=== PATIENT | male | born 1980 | race Caucasian/White ===

== ENCOUNTER 2016-12-21 16:00 | Emergency (ER) | payer OTHER ==
[~2016-12-21] VITALS: Wt 100.0 kg
[~2016-12-21 16:00] MED LIST: ACET325T33 PO; IBUP-1542 PO; NAPR-260 PO
[2016-12-21] MEDS ORDERED: ALBUTEROL 0.5% (NEB) 2.5 MG/0.5 ML AMP HHN STA (16:49)
[2016-12-21] MEDS ORDERED: IPRATROPIUM (NEB) 0.5 MG/2.5 ML AMP HHN ONE (17:00)
--- NOTE | 2016-12-21 17:19 | RADRPT ---
PROCEDURE: Chest Radiograph. CLINICAL INDICATION: Cough TECHNIQUE: Single frontal chest radiograph. COMPARISON: Chest radiograph 07/29/2013 FINDINGS: The cardiomediastinal silhouette is within normal limits. There is increased density throughout the left hemithorax which appears to be related to centering artifact. Lung volumes are decreased in t here is basilar atelectasis. No infiltrate or effusion is seen. The bones are intact. IMPRESSION: 1. Low lung volumes with mild basilar atelectasis. 2. No evidence of acute cardiopulmonary disease. RPTAT: HJBF .Angel Valle MD, MD Date Time Electronically viewed and signed by .Angel Valle MD, on 12/21/2016 17:19 .B/
[2016-12-21] MEDS ORDERED: LISI10TA2 PO (17:48)
[2016-12-21] MEDS ORDERED: HYD25 PO (17:48)
[2016-12-21] MEDS ORDERED: OMEP20CA16 PO (17:49)
[2016-12-21] MEDS ORDERED: MELO-110 PO (17:49)
[2016-12-21] MEDS ORDERED: ALBU18HF INHALATION (18:18)
[2016-12-21] MEDS ORDERED: LEVO500T72 PO (18:18)
[2016-12-21] MEDS ORDERED: NAPR-688 PO (18:22)
[2016-12-21] MEDS ORDERED: HYDR-906 PO (18:22)
--- NOTE | 2016-12-21 18:29 | ERD ---
ER Documentation Chief Complaint Date/Time DATE: 12/21/16 TIME: 18:24 Chief Complaint FEVER AND COUGHING FOR THE PAST FEW DAYS. GEN WEAKNESS. HPI This 36-year-old male came in with his mother for coughing for the last 3 days as well as feeling left knee weakness and pain. He had prior knee surgery. He saw his orthopedist last week and a CAT scan was obtained. He told him to come in if he has any pain because this saw a broken pin on the CAT scan. He was okay at that time but now has increasing knee pain or makes it more difficult to walk although he is able to walk with his walker is normally. Is eating and drinking normally states that he has no pain currently except for his knee. ROS All systems reviewed and are negative except as per history of present illness. Medications Home Meds Active Scripts Hydrocodone/Acetaminophen ([place] 5-325 Tablet) 1 Each Tablet, 1 EACH PO Q6 Y for SEVERE PAIN LEVEL 7-10, #7 TAB Prov:CARRIEMARIFER DO 12/21/16 Naproxen* (Naproxen*) 500 Mg Tablet, 500 MG PO BID Y for PAIN, #20 TAB Prov:MARIFER BUTLER DO 12/21/16 Albuterol Sulfate* (Ventolin HFA*) 18 Gm Hfa.aer.ad, 2 PUFF INHALATION Q4H, #1 INHALER Prov:MARIFER BUTLER DO 12/21/16 Levofloxacin* (Levaquin*) 500 Mg Tablet, 500 MG PO DAILY for 7 Days, TAB Prov:MARIFER BUTLER DO 12/21/16 Reported Medications Meloxicam* (Mobic*) 15 Mg Tablet, 15 MG PO DAILY, #30 TAB 12/21/16 Omeprazole* (Omeprazole*) 20 Mg Capsule.dr, 20 MG PO DAILY, #30 CAP 12/21/16 Hydrochlorothiazide* (Hydrochlorothiazide*) 25 Mg Tab, 25 MG PO DAILY, #30 TAB 12/21/16 Lisinopril* (Lisinopril*) 10 Mg Tablet, 10 MG PO DAILY, #30 TAB 12/21/16 Discontinued Reported Medications [None] No Conflict Check 07/27/12 Discontinued Scripts Naproxen* (Naprosyn*) 500 Mg Tablet, 500 MG PO BID Y for PAIN AND/OR INFLAMMATION, #20 TAB Prov:JENNA PERALES NP 03/16/16 Acetaminophen* (Tylenol*) 325 Mg Tablet, 2 TAB PO Q8 Y for PAIN AND OR ELEVATED TEMP, #20 TAB Prov:CHINO ALBERTO DO 03/09/16 Ibuprofen* (Motrin*) 600 Mg Tab, 600 MG PO Q8, #20 TAB Prov:CHINO ALBERTO DO 03/09/16 Allergies Allergies: Coded Allergies: No Known Drug Allergies (Verified Allergy, Mild, 12/21/16) PMhx/Soc History of Surgery: Yes (RT KNEE SURGERY, TONSILLECTOMY,EAR TUBES) Anesthesia Reaction: No Hx Neurological Disorder: No Hx Respiratory Disorders: No Hx Cardiac Disorders: Yes (HTN) Hx Psychiatric Problems: No Hx Miscellaneous Medical Probl: Yes (DEVELOPMENTALLY DELAYED) Hx Alcohol Use: No Hx Substance Use: No Hx Tobacco Use: No Physical Exam Vitals Vital Signs Date Time Temp Pulse Resp B/P Pulse Ox O2 Delivery O2 Flow Rate FiO2 12/21/16 17:04 110 20 96 21 12/21/16 16:12 98.9 138 24 176/70 98 Physical Exam Const: [] No distress Head: Atraumatic Eyes: Normal Conjunctiva ENT: Normal External Ears, Nose and Mouth. Neck: Full range of motion..~ No meningismus. Resp: Clear to auscultation bilaterally except for very mild expiratory wheeze the disappeared with the next breath. Cardio: Regular rate and rhythm, no murmurs Abd: Soft, non tender, non distended. Normal bowel sounds Skin: No petechiae or rashes Back: No midline or flank tenderness Ext: No cyanosis, or edema, left knee is larger than right knee and has a surgical scar. No pain is elicited on palpation. Patient does have some pain on bending the knee. Distal pulses intact. Neur: Awake and alert and oriented 3, no focal deficits Psych: Normal Mood and Affect Results 24 hrs Current Medications Medications (Trade) Dose Ordered Sig/Margo Route PRN Reason Start Time Stop Time Status Last Admin Dose Admin Albuterol (Proventil 0.5% (Neb)) 5 mg ONCE STAT HHN 12/21/16 16:49 12/21/16 16:52 DC 12/21/16 17:03 Ipratropium [place] (Atrovent 0.02% (Neb)) 0.5 mg ONCE ONCE HHN 12/21/16 17:00 12/21/16 17:01 DC 12/21/16 17:03 Procedures/MDM Acute bronchitis and 36-year-old male. No obvious pneumonia on chest x-ray. Patient was given albuterol and Atrovent breathing treatment which he said improved his breathing. He then had no symptoms except for his pain. I did call his knee surgeon Dr. Morris . he returned the call and agreed to see the patient the office tomorrow. As a CAT scan was performed last week and the orthopedists sulaiman has the CAT scan results I see no reason for imaging at this time. Patient is ambulatory and able to leave the emergency room under his own power. I am prescribing Levaquin for the bronchitis. Also giving her Ventolin inhaler for patient comfort. Discharging with 7 [place] tabs as well as naproxen for the knee pain. He is to see his primary care doctor within the next few days and follow-up with his orthopedist tomorrow as agreed. Term precautions given. Departure Diagnosis: Primary Impression: Acute bronchitis Additional Impression: Left knee sprain Condition: Stable Patient Instructions: Bronchitis With Wheezing (Adult), Knee Pain, Uncertain Cause Additional Instructions: Call your primary care doctor TOMORROW for an appointment during the next 1-2 days.See the doctor sooner or return here if your condition worsens before your appointment time. See your orthopedist tomorrow. MARIFER BUTLER DO Dec 21, 2016 18:29
== END 2016-12-21 18:45 | disposition home or self-care (01) ==
LOC: E/R 16:00
DX: J20.9 Acute bronchitis, unspecified (principal); R40.2252 Coma scale, best verbal response, oriented, at arrival to emergency department; S83.92XA Sprain of unspecified site of left knee, initial encounter; I10 Essential (primary) hypertension; R40.2362 Coma scale, best motor response, obeys commands, at arrival to emergency department; R40.2142 Coma scale, eyes open, spontaneous, at arrival to emergency department; X58.XXXA Exposure to other specified factors, initial encounter; Y92.9 Unspecified place or not applicable
CPT/HCPCS: 71010; 94664; Z7502; Z7610

== ENCOUNTER 2017-05-18 07:59 | Emergency (ER) | payer OTHER ==
[~2017-05-18] VITALS: Ht 160 cm; Wt 90.0 kg
[~2017-05-18 07:59] MED LIST changes: -ACET325T33 PO; +ALBU18HF INHALATION; +HYD25 PO; +HYDR-906 PO; -IBUP-1542 PO; +LEVO500T72 PO; +LISI10TA2 PO; +MELO-110 PO; -NAPR-260 PO; +NAPR-688 PO; +OMEP20CA16 PO
[2017-05-18 08:01] VITALS: Ht 160 cm; Wt 90.0 kg
--- NOTE | 2017-05-18 09:20 | RADRPT ---
PROCEDURE: XR Ankle. CLINICAL INDICATION: Right ankle pain following injury TECHNIQUE: 3 views of the right ankle are available for review COMPARISON: Right ankle x-rays dated 03/09/2016 FINDINGS: The osseous structures demonstrate normal alignment and mineralization. No acute fracture or disloc ation is seen. The ankle mortise is intact. No periostitis or osteochondral lesion is identified. There is intertarsal joint space narrowing with small osteophytes along the dorsum of the talus, na vicular and second cuneiform. There is tibia talar joint space narrowing. There is mild diffuse so ft tissue edema. IMPRESSION: 1. Mild diffuse soft tissue edema. No acute fracture identified. 2. Mild ankle and midfoot arthrosis. RPTAT: HH .Dory Barth MD, Date Time Electronically viewed and signed by .Dory Barth MD, on 05/18/2017 09:20 .G/
--- NOTE | 2017-05-18 09:23 | RADRPT ---
PROCEDURE: XR Foot. CLINICAL INDICATION: Right foot pain following injury. TECHNIQUE: 3 views of the right foot are available for review. COMPARISON: Right foot x-rays dated 03/09/2016 FINDINGS: The osseous structures demonstrate normal alignment and mineralization. No acute fracture or disloc ation is seen. There is no periostitis or osteochondral lesion identified. There is mild intertarsa l joint space narrowing with osteophytes along the dorsal margin of the talus, navicular and second cuneiform. The soft tissues are unremarkable. IMPRESSION: 1. No acute fracture identified. 2. Mild midfoot arthrosis. RPTAT: HH .Dory Barth MD, MD Date Time Electronically viewed and signed by .Dory Barth MD, on 05/18/2017 09:23 .G/
[2017-05-18] MEDS ORDERED: IBUP-1542 PO (09:58)
--- NOTE | 2017-05-18 10:16 | ERD ---
ER Documentation Chief Complaint Date/Time DATE: 05/18/17 TIME: 10:08 Chief Complaint right foot pain HPI 36-year-old male patient with a past medical history of hypertension presents to the ED complaining of a crush injury to his right foot. At this time patient presented with his sister. Reports that at school, patient's classmate accidentally stepped on his right foot with his shoe. Patient is unable to describe the pain. Rates the pain a 5 out of 10. Sister reports that patient was taking naproxen and it alleviated his pain. Denies any loss of sensation, loss of range of motion, fever, weakness, numbness or tingling. Denies any lacerations or abrasions. Denies any increased redness however is slightly edematous. ROS All systems reviewed and are negative except as per history of present illness. Medications Home Meds Active Scripts Ibuprofen* (Motrin*) 600 Mg Tab, 600 MG PO Q6, #30 TAB Prov:MARYANN VILLAR PA-C 05/18/17 Hydrocodone/Acetaminophen ([place] 5-325 Tablet) 1 Each Tablet, 1 EACH PO Q6 Y for SEVERE PAIN LEVEL 7-10, #7 TAB Prov:CARRIEMARIFER 12/21/16 Naproxen* (Naproxen*) 500 Mg Tablet, 500 MG PO BID Y for PAIN, #20 TAB Prov:CARRIEMARIFER DO 12/21/16 Albuterol Sulfate* (Ventolin HFA*) 18 Gm Hfa.aer.ad, 2 PUFF INHALATION Q4H, #1 INHALER Prov:MARIFER BUTLER DO 12/21/16 Levofloxacin* (Levaquin*) 500 Mg Tablet, 500 MG PO DAILY for 7 Days, TAB Prov:CARRIEMARIFER 12/21/16 Reported Medications Meloxicam* (Mobic*) 15 Mg Tablet, 15 MG PO DAILY, #30 TAB 12/21/16 Omeprazole* (Omeprazole*) 20 Mg Capsule.dr, 20 MG PO DAILY, #30 CAP 12/21/16 Hydrochlorothiazide* (Hydrochlorothiazide*) 25 Mg Tab, 25 MG PO DAILY, #30 TAB 12/21/16 Lisinopril* (Lisinopril*) 10 Mg Tablet, 10 MG PO DAILY, #30 TAB 12/21/16 Allergies Allergies: Coded Allergies: No Known Drug Allergies (Verified Allergy, Mild, 12/21/16) PMhx/Soc History of Surgery: Yes (RT KNEE SURGERY, TONSILLECTOMY,EAR TUBES) Anesthesia Reaction: No Hx Neurological Disorder: No Hx Respiratory Disorders: No Hx Cardiac Disorders: Yes (HTN) Hx Psychiatric Problems: No Hx Miscellaneous Medical Probl: Yes (DEVELOPMENTALLY DELAYED) Hx Alcohol Use: No Hx Substance Use: No Hx Tobacco Use: No Physical Exam Vitals Vital Signs Date Time Temp Pulse Resp B/P Pulse Ox O2 Delivery O2 Flow Rate FiO2 05/18/17 08:01 98.1 100 20 141/98 99 Physical Exam Const: [id number], well-nourished. In no acute distress. Head: Atraumatic, normocephalic Eyes: Normal Conjunctiva without injection ENT: Normal external ear, nose and mouth. Neck: Full range of motion. No meningismus. Resp: Clear to auscultation bilaterally. No wheezing, rhonchi, rales, or crackles. No accessory muscle use. No retractions. Cardio: Regular rate and rhythm, no murmurs Skin: No petechiae or rashes Back: No midline tenderness. No CVA tenderness. Ext: No cyanosis, or edema. Cap refill less than 2 seconds. Distal pulses intact bilaterally. Tenderness palpation of the dorsal aspect of patient's right foot. Slightly edematous and erythematous. No fluctuance or induration. Neur: Awake and alert. Normal gait and coordination. Muscle strength 5/5. Sensation intact bilaterally. Psych: Normal Mood and Affect Procedures/MDM 36-year-old male patient with no significant past medical history presents to the ED complaining of right foot pain due to a crush injury. Patient is afebrile and nontoxic-appearing. Patient has normal vital signs. PROCEDURE: XR Ankle. CLINICAL INDICATION: Right ankle pain following injury TECHNIQUE: 3 views of the right ankle are available for review COMPARISON: Right ankle x-rays dated 03/09/2016 FINDINGS: The osseous structures demonstrate normal alignment and mineralization. No acute fracture or dislocation is seen. The ankle mortise is intact. No periostitis or osteochondral lesion is identified. There is intertarsal joint space narrowing with small osteophytes along the dorsum of the talus, navicular and second cuneiform. There is tibia talar joint space narrowing. There is mild diffuse soft tissue edema. IMPRESSION: 1. Mild diffuse soft tissue edema. No acute fracture identified. 2. Mild ankle and midfoot arthrosis. PROCEDURE: XR Foot. CLINICAL INDICATION: Right foot pain following injury. TECHNIQUE: 3 views of the right foot are available for review. COMPARISON: Right foot x-rays dated 03/09/2016 FINDINGS: The osseous structures demonstrate normal alignment and mineralization. No acute fracture or dislocation is seen. There is no periostitis or osteochondral lesion identified. There is mild intertarsal joint space narrowing with osteophytes along the dorsal margin of the talus, navicular and second cuneiform. The soft tissues are unremarkable. IMPRESSION: 1. No acute fracture identified. 2. Mild midfoot arthrosis. Patient is placed in a aamir wrap placement. Patient has a walker. Patient reports he is still able to ambulate. Splint Assessment: Neurovascularly intact pre and post splint placement with good fit. Patient's extremity symptoms have stabilized while they have been evaluated in the department and are appropriate for outpatient follow up. No evidence of fractures, dislocations, compartment syndrome, neurologic injury, vascular injury, open joint, open fracture, tendon laceration, septic arthritis, osteomyelitis, DVT, foreign body, or other emergent conditions. Patient has an appointment with an orthopedic physician on May 23. Discharge medications: Ibuprofen Follow up with orthopedic physician and keep his appointment for further evaluation and treatment. Instructed patient to return to the ED sooner for any worsening symptoms. Patient's questions were answered. Patient understood and agreed with discharge plan. Patient discharged stable. Departure Diagnosis: Primary Impression: Crush injury of right foot Encounter type: initial encounter Qualified Code: S97.81XA - Crush injury of right foot, initial encounter Condition: Stable Patient Instructions: Crush Injury, Foot/Toe Referrals: [facility] YOU HAVE RECEIVED A MEDICAL SCREENING EXAM AND THE RESULTS INDICATE THAT YOU DO NOT HAVE A CONDITION THAT REQUIRES URGENT TREATMENT IN THE EMERGENCY DEPARTMENT. FURTHER EVALUATION AND TREATMENT OF YOUR CONDITION CAN WAIT UNTIL YOU ARE SEEN IN YOUR DOCTORS OFFICE WITHIN THE NEXT 1-2 DAYS. IT IS YOUR RESPONSIBILITY TO MAKE AN APPOINTMENT FOR FOLOW-UP CARE. IF YOU HAVE A PRIMARY DOCTOR --you should call your primary doctor and schedule an appointment IF YOU DO NOT HAVE A PRIMARY DOCTOR YOU CAN CALL OUR PHYSICIAN REFERRAL HOTLINE AT IF YOU CAN NOT AFFORD TO SEE A PHYSICIAN YOU CAN CHOSE FROM THE FOLLOWING [facility] [address] [facility] [address] [place] [facility] [address] [facility] [address] [facility] [address] [facility] [address] [facility] YOU HAVE RECEIVED A MEDICAL SCREENING EXAM AND THE RESULTS INDICATE THAT YOU DO NOT HAVE A CONDITION THAT REQUIRES URGENT TREATMENT IN THE EMERGENCY DEPARTMENT. FURTHER EVALUATION AND TREATMENT OF YOUR CONDITION CAN WAIT UNTIL YOU ARE SEEN IN YOUR DOCTORS OFFICE WITHIN THE NEXT 1-2 DAYS. IT IS YOUR RESPONSIBILITY TO MAKE AN APPOINTMENT FOR FOLOW-UP CARE. IF YOU HAVE A PRIMARY DOCTOR --you should call your primary doctor and schedule and appointment IF YOU DO NOT HAVE A PRIMARY DOCTOR YOU CAN CALL OUR PHYSICIAN REFERRAL HOTLINE AT . IF YOU CAN NOT AFFORD TO SEE A PHYSICIAN YOU CAN CHOSE FROM THE FOLLOWING [facility] INSTITUTIONS: [facility] [address] [place] [address] [facility] [address] [place] [address] [facility] [address] [place] [address] [facility] Urgent Care 7 a.m.- 11 p.m. Every Day of the Week NO APPOINTMENT OR AUTHORIZATION NEEDED [facility] Hours: Mon-Fri 9:00 AM - 5:00 PM Additional Instructions: Return to this facility TOMORROW for a repeat exam for a referral to orthopedic physician for further evaluation and treatment.Return sooner if your condition worsens before then - fever, worsening swelling or redness. MARYANN VILLAR PA-C May 18, 2017 10:16
== END 2017-05-18 10:10 | disposition home or self-care (01) ==
LOC: FTE 07:59
DX: S97.81XA Crushing injury of right foot, initial encounter (principal); I10 Essential (primary) hypertension; W50.0XXA Accidental hit or strike by another person, initial encounter; Y92.9 Unspecified place or not applicable
CPT/HCPCS: 73610; 73630; Z7502

== ENCOUNTER 2018-07-09 11:18 | Emergency (ER) | END 2018-07-09 13:47 | disposition home or self-care (01) ==

== ENCOUNTER 2019-03-05 11:03 | Emergency (ER) | payer OTHER ==
[~2019-03-05] VITALS: Ht 162.6 cm; Wt 72.7 kg
[~2019-03-05 11:03] MED LIST changes: +FAMO-96 PO; -HYD25 PO; +HYDR-4011 PO; -HYDR-906 PO; +HYDR25TA6 PO; +IBUP-1542 PO; +LEVO500T48 PO; -LEVO500T72 PO; -MELO-110 PO; +MELO15TA30 PO
[2019-03-05 11:33] VITALS: BP 138/71; PULSE 89; RESP 16; Ht 162.6 cm; Wt 72.7 kg
--- NOTE | 2019-03-05 15:08 | ERD ---
ER Documentation Chief Complaint Chief Complaint LT KNEE PAIN & DIFFICULTY AMBULATING SINCE MONDAY HPI 38-year-old male past medical history of intellectual disability, hypertension, history of left knee surgery presents for left knee pain and difficulty ambulating times 2 days. Patient sister states that she does not know what could have caused the patient to begin lifting. Patient does use a walker for observation given his history of left knee surgery for patellar injury. The surgery was done a few years ago. Pain is noted to be 10 out of 10, intermittent, patient is unable to describe the quality of the pain. There is no pain radiation. Patient has been given Naprosyn which he took with some relief. Denies chest pain or shortness of breath. Denies abdominal pain, nausea, vomiting ROS All systems reviewed and are negative except as per history of present illness. Medications Home Meds Active Scripts Famotidine* (Pepcid*) 20 Mg Tablet, 20 MG PO BID for 4 Days, #30 TAB Prov:SUKUMAR ADDISON PA-C 07/09/18 Hydrocodone/Acetaminophen ([place] 5-325 Tablet) 1 Each Tablet, 1 TAB PO Q6H PRN for PAIN, #7 TAB Prov:SUKUMAR ADDISON PA-C 07/09/18 Ibuprofen* (Motrin*) 600 Mg Tab, 600 MG PO Q6, #30 TAB Prov:MARYANN VILLAR PA-C 05/18/17 Hydrocodone/Acetaminophen ([place] 5-325 Tablet) 1 Each Tablet, 1 EACH PO Q6 PRN for SEVERE PAIN LEVEL 7-10, #7 TAB Prov:MARIFER BUTLER DO 12/21/16 Naproxen* (Naproxen*) 500 Mg Tablet, 500 MG PO BID PRN for PAIN, #20 TAB Prov:MARIFER BUTLER DO 12/21/16 Albuterol Sulfate* (Ventolin HFA*) 18 Gm Hfa.aer.ad, 2 PUFF INHALATION Q4H, #1 INHALER Prov:MARIFER BUTLER DO 12/21/16 Levofloxacin* (Levaquin*) 500 Mg Tablet, 500 MG PO DAILY for 7 Days, TAB Prov:MARIFER BUTLER DO 12/21/16 Reported Medications Meloxicam* (Mobic*) 15 Mg Tablet, 15 MG PO DAILY, #30 TAB 1/25/17 Omeprazole* (Omeprazole*) 20 Mg Capsule.dr, 20 MG PO DAILY, #30 CAP 12/21/16 Hydrochlorothiazide* (Hydrochlorothiazide*) 25 Mg Tab, 25 MG PO DAILY, #30 TAB 12/21/16 Lisinopril* (Lisinopril*) 10 Mg Tablet, 10 MG PO DAILY, #30 TAB 12/21/16 Allergies Allergies: Coded Allergies: No Known Drug Allergies (Verified Allergy, Mild, 12/21/16) PMhx/Soc History of Surgery: Yes (KNEE SURGERY) Anesthesia Reaction: No Hx Neurological Disorder: No Hx Respiratory Disorders: No Hx Cardiac Disorders: Yes (HTN) Hx Psychiatric Problems: No Hx Miscellaneous Medical Probl: Yes (INTELLECTUALLY DISABLED) Hx Alcohol Use: No Hx Substance Use: No Hx Tobacco Use: No Smoking Status: Never smoker Physical Exam Vitals Vital Signs Date Temp Pulse Resp B/P (MAP) Pulse Ox O2 O2 Flow FiO2 Time Delivery Rate 03/05/19 97.6 89 16 138/71 98 11:33 (93) Physical Exam Const: No acute distress Resp: Clear to auscultation bilaterally Cardio: Regular rate and rhythm, no murmurs Skin: No petechiae or rashes Neur: Awake and alert Psych: Normal Mood and Affect Lower Extremity -left: Skin: No laceration Compartments: Soft Motor: Full active range of motion hip/ankle/foot, there is decreased range of motion over the left knee Sensation: Intact to light touch FDWS/MF/LF/P surfaces. Bones: Nontender pelvis/proximal tibia/ malleoli/foot, there is some tenderness palpation over the left knee diffusely Joints: No effusion or laxity Pulses/Perfusion: 2+ DP, Capillary refill < 2 seconds Procedures/MDM Splint Note Type: Left knee immobilizer Location: Left knee Indication: Possible fracture Splint Assessment: Neurovascularly intact post splint placement with good fit. Medical Decision Making: Differential diagnosis includes but not limited to fracture, dislocation, muscle strain, ligamentous sprain. Patient appeared well on physical exam. There was tenderness over the left knee Patient was neurovascularly intact ED course: Imaging: Left knee x-ray per radiology shows patient is status post fixation of the left patella. There is fracture of one of the fixating K-wires. Slightly irregularity of the articular surface of the medial aspect of the lateral femoral condyle. A small fracture or osteochondral defect cannot be excluded. Femur fracture cannot be excluded, patient given a knee immobilizer, see procedure note above Patient sister advised to keep the patient from weightbearing on the left knee and follow-up with orthopedic surgery. Information for follow-up provided Prescription(s): Advised to continue with Naprosyn at home which the sister states she has. Follow up: Patient advised to follow up with ortho surgery. Information for follow up provided. Patient advised to follow up with PCP in 1-2 days. Patient advised to return to ED for new or worsening symptoms. Patient stable on discharge from the ED. Disclaimer: Inadvertent spelling and grammatical errors are likely due to EHR/dictation software use and do not reflect on the overall quality of patient care. Also, please note that the electronic time recorded on this note does not necessarily reflect the actual time of the patient encounter. Departure Diagnosis: Primary Impression: Left knee pain Chronicity: acute Qualified Codes: M25.562 - Pain in left knee Condition: Fair Patient Instructions: Reducing Knee Pain and Swelling Referrals: [facility] YOU HAVE RECEIVED A MEDICAL SCREENING EXAM AND THE RESULTS INDICATE THAT YOU DO NOT HAVE A CONDITION THAT REQUIRES URGENT TREATMENT IN THE EMERGENCY DEPARTMENT. FURTHER EVALUATION AND TREATMENT OF YOUR CONDITION CAN WAIT UNTIL YOU ARE SEEN IN YOUR DOCTORS OFFICE WITHIN THE NEXT 1-2 DAYS. IT IS YOUR RESPONSIBILITY TO MAKE AN APPOINTMENT FOR FOLOW-UP CARE. IF YOU HAVE A PRIMARY DOCTOR --you should call your primary doctor and schedule an appointment IF YOU DO NOT HAVE A PRIMARY DOCTOR YOU CAN CALL OUR PHYSICIAN REFERRAL HOTLINE AT IF YOU CAN NOT AFFORD TO SEE A PHYSICIAN YOU CAN CHOSE FROM THE FOLLOWING [facility] [address] [place] [address] [facility] [facility] [address] [facility] [address] [facility] [address] [facility]. [facility]. [address] [facility] Urgent Care 7 a.m.- 11 p.m. Every Day of the Week NO APPOINTMENT OR AUTHORIZATION NEEDED Additional Instructions: Call your primary care doctor TOMORROW for an appointment during the next 1-2 days.See the doctor sooner or return here if your condition worsens before your appointment time. Follow up with orthopedic surgery at the address provided. Your left knee pain x-ray could not rule out a fracture. Knee immobilizer placed, please do not bear weight until seen by the orthopedic surgeon or primary doctor. SNEHA LOPEZ DO Mar 05, 2019 15:08
== END 2019-03-05 15:25 | disposition home or self-care (01) ==
LOC: FTE 11:03
DX: M25.562 Pain in left knee (principal); I10 Essential (primary) hypertension
CPT/HCPCS: 29515; 73562; Z7502